=== PATIENT | male | born 1980 | race Hispanic/Latino ===

== ENCOUNTER 2021-11-10 11:00 | Emergency (ER) | payer SELFPAY ==
[2021-11-10] MEDS ORDERED: Morphine 4 MG/ML VIAL ONE (11:19)
[2021-11-10 11:26] LABS: #Basophils 0.1 thou/uL (0.0-0.2); #Lymphocytes 1.4 thou/uL (1.20-3.40); #Monocytes 0.6 thou/uL (0.11-0.59); %Basophils 0.6 % (0.0-1.0); %Eosinophils 0.6 % (0.0-10.0); %Lymphocytes 16.9 % (21.0-51.0); %Monocytes 7.4 % (0.0-10.0); %Neutrophils 74.5 % (42.0-75.0); Hemoglobin 16.4 g/dL (14.0-18.0); Mean Corpuscular HGB CONC 34.1 g/dL (32.0-36.0); Mean Corpuscular Hemoglobin 30.7 pg (27.0-31.0); Mean Corpuscular Volume 90.1 fL (78.0-98.0); Mean Platelet Volume 7.4 fL (7.4-10.4); Platelet Count 229 thou/uL (130-400); RBC Distribution Width 12.7 % (11.5-14.5); Red Blood Cell (RBC) Count 5.35 mill/uL (4.70-6.10); White Blood Cell (WBC) Count 8.1 thou/uL (4.8-10.8)
[2021-11-10 13:56] LABS: Albumin 4.9 g/dL (3.5-5.0)
[2021-11-10 13:58] LABS: Calcium 9.7 mg/dL (7.8-10.44); Chloride 97 mmol/L (98-107); Potassium 3.6 mmol/L (3.5-5.1); Sodium 136 mmol/L (136-145)
[2021-11-10 13:59] LABS: Globulin 3.3 g/dL (2.4-3.5); Protein, Total 8.2 g/dL (6.0-8.3)
[2021-11-10 14:00] LABS: Carbon Dioxide 29 mmol/L (22-29)
[2021-11-10 14:01] LABS: Anion Gap 14 mmol/L (10-20); Bilirubin, Total 0.9 mg/dL (0.2-1.2)
[2021-11-10 14:02] LABS: Calc. Creatinine Clearance 0 mL/min (70-130); Glucose 113 mg/dL (70-105)
[2021-11-10 14:04] LABS: AST (SGOT) 25 U/L (5-34)
[2021-11-10 14:05] LABS: Alkaline Phosphatase 82 U/L (40-110)
[2021-11-10 14:06] LABS: BUN (Urea Nitrogen) 7 mg/dL (8.9-20.6)
[2021-11-10 14:08] LABS: ALT (SGPT) 23 U/L (8-55); Lipase 21 U/L (8-78)
== END 2021-11-10 16:09 | disposition home or self-care (01) ==
LOC: EDBD 11:00 → ERS 11:00
DX: R07.9 Chest pain, unspecified (principal)
CPT/HCPCS: 36415; 71045; 80053; 83690; 84484; 85025; 93005; 94760; 96374; J2270